=== PATIENT | female | born 1990 | race Caucasian/White ===

== ENCOUNTER 2017-08-17 16:22 | Emergency (ER) | payer MEDICAID ==
[~2017-08-17] VITALS: Ht 152.4 cm; Wt 99.2 kg
[2017-08-17] MEDS ORDERED: SODIUM CHLORIDE FLUSH 10ML SYR IVF ONE (16:30)
[2017-08-17] MEDS ORDERED: SODIUM CHLORIDE 0.9% 1,000ML IVBOLUS ONE (16:30)
[2017-08-17 17:41] LABS: HEMATOCRIT 33.2 % (34.6-47.8); HEMOGLOBIN 10.3 g/dL (11.7-16.4); WHITE BLOOD COUNT 12.4 x10^3/uL (3.4-10)
[2017-08-17 17:50] LABS: BLOOD UREA NITROGEN 8 mg/dL (7-18)
[2017-08-17 17:59] LABS: DIFF TOTAL CELLS COUNTED 100 CELL DIFF
[2017-08-17 18:01] LABS: VERIFY COUNTS? YES
[2017-08-17 18:03] LABS: HYPOCHROMIA 1+; MICROCYTOSIS 1+; OVALOCYTES 1+; POLYCHROMASIA 1+
[2017-08-17 18:08] LABS: ASPARTATE AMINO TRANSFERASE 14 U/L (15-37)
[2017-08-17 20:17] VITALS: BP 107/80
== END 2017-08-17 20:21 | disposition home or self-care (01) ==
LOC: ED 20:15
DX: O20.0 Threatened abortion (principal); Z3A.09 9 weeks gestation of pregnancy
CPT/HCPCS: 36415; 76801; 80053; 81001; 84702; 85025; 86901; 96360; 96361; 99285; J7030

== ENCOUNTER 2017-11-01 16:44 | Emergency (ER) | payer MEDICAID ==
[~2017-11-01] VITALS: Ht 152.4 cm; Wt 99.7 kg
[2017-11-01 16:50] VITALS: BP 136/98
[2017-11-01 18:08] LABS: MEAN CORPUSCULAR HGB CONC 31.2 g/dL (32.4-35.8); MEAN CORPUSCULAR VOLUME 67.3 fL (80-100); MEAN PLATELET VOLUME 8.4 fL (7.4-10.4); PLATELET COUNT 402 x10^3/uL (130-400); RED BLOOD COUNT 4.83 x10^6/uL (3.82-5.3); RED CELL DISTRIBUTION WIDTH 23.8 % (9.6-15.2)
[2017-11-01 18:08] LABS: MICROSCOPIC AUTO
[2017-11-01 18:11] LABS: INTERNATIONAL NORMALIZED RATIO 1.03 (0.93-1.1); PROTHROMBIN TIME 10.7 Seconds (9.6-11.5)
[2017-11-01 18:14] LABS: ALBUMIN 3.4 g/dL (3.4-5.0); ANION GAP 8 mmol/L (5-15); CALCIUM 8.5 mg/dL (8.5-10.1); CHLORIDE 106 mmol/L (98-107); CREATININE 0.67 mg/dL (0.55-1.02)
[2017-11-01 18:19] LABS: CULTURE INDICATED? YES
[2017-11-01 18:34] LABS: ANISOCYTOSIS 1+; BASOPHILS # (AUTO) 0.05 x10^3/uL (0-0.1); BASOPHILS % (AUTO) 1 % (0-1); EOSINOPHILS # (AUTO) 0.09 x10^3/uL (0-0.4); EOSINOPHILS % (AUTO) 1 % (1-7); LYMPHOCYTES % (AUTO) 17 % (22-44); MD MORPH REVIEW ONLY; MONOCYTES # (AUTO) 0.61 x10^3/uL (0.2-0.8); MONOCYTES % (AUTO) 5 % (2-9); NEUTROPHILS # (AUTO) 8.75 x10^3/uL (1.8-6.8); NEUTROPHILS % (AUTO) 77 % (42-75)
[2017-11-01 18:35] LABS: <PLATELET ESTIMATE> INCREASED; <PLT MORPHOLOGY> NORMAL PLT MORPH; MICROCYTOSIS 1+; OVALOCYTES 1+; POLYCHROMASIA 1+
== END 2017-11-01 19:56 | disposition home or self-care (01) ==
LOC: ED 18:11
DX: N93.8 Other specified abnormal uterine and vaginal bleeding (principal); R10.2 Pelvic and perineal pain; Z88.6 Allergy status to analgesic agent
CPT/HCPCS: 36415; 76830; 80048; 81001; 82040; 84703; 85025; 85610; 85730; 87086; 99285

== ENCOUNTER 2018-11-15 10:23 | Inpatient (IN) | payer BC, MEDICAID ==
[~2018-11-15] VITALS: Ht 152.4 cm; Wt 104.0 kg
[2018-11-15] MEDS ORDERED: OMEP20TA62 PO (10:37)
[2018-11-15] MEDS ORDERED: PREN1TAB60 PO (10:37)
[2018-11-15 10:43] VITALS: BP 123/88
[2018-11-15] MEDS ORDERED: SODIUM CITRATE/CITRIC ACID 30 ML UDC PO ONE (11:00)
[2018-11-15] MEDS ORDERED: METOCLOPRAMIDE 5 MG/ML, 2ML IV ONE (11:00)
[2018-11-15] MEDS ORDERED: LACTATED RINGERS 1,000 ML IVBOLUS ONE (11:00)
[2018-11-15] MEDS ORDERED: PLEASE ENTER HEIGHT AND WEIGHT MC SCH (11:00)
[2018-11-15] MEDS ORDERED: SODIUM CITRATE/CITRIC ACID 30 ML UDC ONE (11:14)
[2018-11-15] MEDS ORDERED: OXYTOCIN 30U/ 0.9% NaCL 500ML 500 ML ONE (11:14)
[2018-11-15] MEDS ORDERED: NEWBORN KIT ONE (11:14)
[2018-11-15] MEDS ORDERED: METOCLOPRAMIDE 5 MG/ML, 2ML ONE (11:14)
[2018-11-15 11:17] LABS: BASOPHILS # (AUTO) 0.03 x10^3/uL (0-0.1); BASOPHILS % (AUTO) 0 % (0-1); EOSINOPHILS % (AUTO) 0 % (1-7); LYMPHOCYTES # (AUTO) 1.51 x10^3/uL (1-3.4); LYMPHOCYTES % (AUTO) 15 % (22-44); MD NO; MEAN CORPUSCULAR HEMOGLOBIN 21.6 pg (27.0-34.8); MEAN CORPUSCULAR HGB CONC 31.3 g/dL (32.4-35.8); MONOCYTES # (AUTO) 0.67 x10^3/uL (0.2-0.8); MONOCYTES % (AUTO) 7 % (2-9); NEUTROPHILS # (AUTO) 7.91 x10^3/uL (1.8-6.8); NEUTROPHILS % (AUTO) 78 % (42-75); PLATELET COUNT 254 x10^3/uL (130-400); RED BLOOD COUNT 4.64 x10^6/uL (3.82-5.3); RED CELL DISTRIBUTION WIDTH 18.5 % (9.6-15.2)
[2018-11-15] MEDS ORDERED: EPHEDRINE 50 MG/ML, 1ML ONE (11:42)
[2018-11-15] MEDS ORDERED: PHENYLEPHRINE 10 MG/ML ONE (11:42)
[2018-11-15] MEDS ORDERED: KETOROLAC 30 MG/1 ML ONE (11:42)
[2018-11-15] MEDS ORDERED: OXYTOCIN 10 UNITS/ML, 1ML ONE (11:42)
[2018-11-15] MEDS ORDERED: DEXAMETHASONE 4 MG/ML, 1ML ONE (11:42)
[2018-11-15] MEDS ORDERED: CEFAZOLIN 1,000 MG ONE (11:42)
[2018-11-15] MEDS ORDERED: ONDANSETRON 2MG/ML, 2ML ONE (11:42)
[2018-11-15] MEDS ORDERED: FENTANYL PF 100 MCG/2ML ONE (11:42)
[2018-11-15] MEDS: LACTATED RINGERS 1,000 ML IV SCH ×4 (11:59→19:59)
[2018-11-15] MEDS ORDERED: MISOPROSTOL 200 MCG TABLET PR PRN (12:00)
[2018-11-15] MEDS ORDERED: hydrALAzine 20 MG/ML, 1ML IV PRN (12:00)
[2018-11-15] MEDS ORDERED: MEASLES,MUMPS&RUBELLA VACC/PF 0.5 ML SQ-VACC PRN (12:00)
[2018-11-15] MEDS ORDERED: RHOGAM FROM BLOOD BANK 1 NOTE EA IM/IV ONE (12:00)
[2018-11-15] MEDS ORDERED: OXYcodone IR 5MG TABLET PO PRN (12:00)
[2018-11-15] MEDS ORDERED: PROMETHAZINE 25 MG/ML, 1ML IV PRN (12:00)
[2018-11-15] MEDS ORDERED: ONDANSETRON 2MG/ML, 2ML IVPush PRN (12:00)
[2018-11-15] MEDS ORDERED: EPHEDRINE 50 MG/ML, 1ML IVPush PRN (12:00)
[2018-11-15] MEDS ORDERED: OXYcodone 5 MG/5 ML ORAL.SOL UDC PO PRN (12:00)
[2018-11-15] MEDS ORDERED: MEPERIDINE/PF 25MG/0.5ML IVPush PRN (12:00)
[2018-11-15] MEDS ORDERED: METOPROLOL 1 MG/ML, 5ML IV PRN (12:00)
[2018-11-15] MEDS ORDERED: CALCIUM CARBONATE 500 MG TAB.CHEW PO PRN (12:00)
[2018-11-15] MEDS ORDERED: LABETALOL 5MG/ML, 20ML IV PRN (12:00)
[2018-11-15] MEDS ORDERED: MIDAZOLAM 1 MG/ML, 2ML IV PRN (12:00)
[2018-11-15] MEDS ORDERED: HYDROmorphone 2 MG/ML, 1ML IVPush PRN (12:00)
[2018-11-15] MEDS ORDERED: DOCUSATE 100 MG CAPSULE PO PRN (12:00)
[2018-11-15] MEDS ORDERED: ALBUTEROL SULFATE 2.5 MG/3 ML NPPB PRN (12:00)
[2018-11-15] MEDS ORDERED: HYDROcodone/APAP 7.5-325MG/15ML UDC PO PRN (12:00)
[2018-11-15] MEDS ORDERED: MORPHINE SULFATE 4 MG/ML, 1ML IVPush PRN (12:00)
[2018-11-15] MEDS ORDERED: ONDANSETRON 2MG/ML, 2ML IV PRN (12:00)
[2018-11-15] MEDS ORDERED: DIPH,PERTUSS(ACELL),TET VAC/PF NC IM-VACC PRN (12:00)
[2018-11-15] MEDS ORDERED: morphine SULFATE 10 MG/ML, 1ML IM PRN (12:00)
[2018-11-15] MEDS ORDERED: SIMETHICONE 80 MG CHEW TAB PO PRN (12:00)
[2018-11-15] MEDS ORDERED: FENTANYL PF 100 MCG/2ML IV PRN (12:00)
[2018-11-15] MEDS ORDERED: HYDROmorphone 2 MG/ML, 1ML ONE (12:51)
[2018-11-15] MEDS: KETOROLAC 30 MG/1 ML IV SCH ×3 (13:00→23:55)
[2018-11-15] MEDS: OXYTOCIN 30U/ 0.9% NaCL 500ML 500 ML IV SCH ×2 (14:45→21:59)
[2018-11-15 16:45] VITALS: BP 126/78
[2018-11-15 20:00] VITALS: BP 118/82
[2018-11-15 21:04] LABS: BASOPHILS # (AUTO) 0.01 x10^3/uL (0-0.1); BASOPHILS % (AUTO) 0 % (0-1); EOSINOPHILS % (AUTO) 0 % (1-7); LYMPHOCYTES # (AUTO) 0.88 x10^3/uL (1-3.4); LYMPHOCYTES % (AUTO) 6 % (22-44); MD NO; MEAN CORPUSCULAR HEMOGLOBIN 22.1 pg (27.0-34.8); MEAN CORPUSCULAR VOLUME 69.2 fL (80-100); MEAN PLATELET VOLUME 9.1 fL (7.4-10.4); MONOCYTES # (AUTO) 0.58 x10^3/uL (0.2-0.8); MONOCYTES % (AUTO) 4 % (2-9); NEUTROPHILS # (AUTO) 14.43 x10^3/uL (1.8-6.8); NEUTROPHILS % (AUTO) 91 % (42-75); PLATELET COUNT 255 x10^3/uL (130-400); RED BLOOD COUNT 4.47 x10^6/uL (3.82-5.3); RED CELL DISTRIBUTION WIDTH 18.5 % (9.6-15.2)
[2018-11-16 00:45] VITALS: BP 97/61
[2018-11-16] MEDS: LACTATED RINGERS 1,000 ML IV SCH ×5 (03:59→19:59)
[2018-11-16 05:00] VITALS: BP 108/65
[2018-11-16] MEDS: OXYcodone/APAP 5/325MG TABLET PO PRN ×2 (05:36→17:50)
[2018-11-16] MEDS: KETOROLAC 30 MG/1 ML IV SCH ×4 (05:56→23:51)
[2018-11-16 07:30] VITALS: BP 115/77
[2018-11-16] MEDS: OXYTOCIN 30U/ 0.9% NaCL 500ML 500 ML IV SCH ×2 (07:59→17:59)
[2018-11-16] MEDS ORDERED: PRENATAL VIT/IRON/FA 1 EACH TABLET PO SCH (09:00)
[2018-11-16 12:10] VITALS: BP 114/80
[2018-11-16 19:20] VITALS: BP 107/69
[2018-11-17] MEDS: LACTATED RINGERS 1,000 ML IV SCH ×2 (03:59)
[2018-11-17] MEDS: OXYTOCIN 30U/ 0.9% NaCL 500ML 500 ML IV SCH (03:59)
[2018-11-17] MEDS: KETOROLAC 30 MG/1 ML IV SCH (05:46)
[2018-11-17 07:40] VITALS: BP 106/72
[2018-11-17] MEDS ORDERED: OXYC-302 PO (10:04)
[2018-11-17] MEDS ORDERED: IBUP-1222 PO (10:04)
[2018-11-17] MEDS ORDERED: IBUPROFEN 600 MG TABLET PO PRN (12:00)
== END 2018-11-17 10:35 | disposition home or self-care (01) | DRG 784 ==
LOC: LDIP 10:23 → 2NW 15:37
PROVIDERS: ADMIT Obstetrics & Gynecology Gynecology; ATTEND Obstetrics & Gynecology Gynecology
PROC: 10D00Z1 Extraction of Products of Conception, Low, Open Approach (ICD-10-PCS; principal; 2018-11-15)
PROC: 0UB70ZZ Excision of Bilateral Fallopian Tubes, Open Approach (ICD-10-PCS; 2018-11-15)
DX: O34.211 Maternal care for low transverse scar from previous cesarean delivery (principal); O99.354 Diseases of the nervous system complicating childbirth; Z37.0 Single live birth; Z3A.39 39 weeks gestation of pregnancy; J45.909 Unspecified asthma, uncomplicated; O99.52 Diseases of the respiratory system complicating childbirth; G43.909 Migraine, unspecified, not intractable, without status migrainosus; F32.9 Major depressive disorder, single episode, unspecified; O99.214 Obesity complicating childbirth; E66.01 Morbid (severe) obesity due to excess calories; O99.344 Other mental disorders complicating childbirth; Z83.3 Family history of diabetes mellitus; Z82.49 Family history of ischemic heart disease and other diseases of the circulatory system; Z82.3 Family history of stroke; Z80.3 Family history of malignant neoplasm of breast; Z88.6 Allergy status to analgesic agent; Z91.030 Bee allergy status
CPT/HCPCS: 36415; 85025; 86850; 86900; 88302; G0378; J0690; J1100; J1170; J1885; J2405; J3010; J2370; J2590; J2765; J7120

== ENCOUNTER → 2018-12-26 | Outpatient (CLI) | payer BC, MEDICAID ==
[~2018-12-26] MED LIST: IBUP-1222 PO; OMEP20TA62 PO; OMNIPAQUE 350 MG/ML, 100ML BOTTLE ONE; OXYC-302 PO; PREN1TAB60 PO
== END | disposition home or self-care (01) ==
LOC: CFH 11:46
PROVIDERS: ATTEND Obstetrics & Gynecology Gynecology
DX: K46.9 Unspecified abdominal hernia without obstruction or gangrene (principal); R10.9 Unspecified abdominal pain
CPT/HCPCS: 74177; Q9967